=== PATIENT | female | born 1965 | race Caucasian/White ===

== ENCOUNTER 2016-09-09 09:15 | Day surgery (SDC) | payer OTHER ==
[2016-09-09] MEDS ORDERED: LACTATED RINGERS 1,000 ML IV ONE ×2 (09:41→10:56)
[2016-09-09 09:46] LABS: HCT - HEMATOCRIT 42.9 % (37.0-47.0); HGB - HEMOGLOBIN 14.5 g/dL (12.0-16.0); MEAN CORPUSCULAR HGB CONC 33.9 g/dL (32.0-36.0); MEAN CORPUSCULAR VOLUME 88.6 fL (81.0-99.0); MEAN PLATELET VOLUME 8.6 fL (7.9-10.8); RED BLOOD COUNT 4.85 10^6/uL (4.20-5.40); RED CELL DISTRIBUTION WIDTH 13.9 % (12.0-15.0); WHITE BLOOD COUNT 11.5 x10^3/uL (4.8-10.8)
[2016-09-09] MEDS ORDERED: fentaNYL 100 MCG/2 ML VIAL IVP ONE (10:06)
[2016-09-09] MEDS ORDERED: MIDAZOLAM 2 MG/2 ML VIAL IVP ONE (10:06)
--- NOTE | 2016-09-09 11:07 | POST OP PROGRESS NOTE ---
Subjective - General Procedure Date: 09/09/16 (outpt procedure) Post Op Days: 0 Procedure Performed: colonoscopy with polypectomy Surgery Impression Plan - FEN FEN: Preop dx: h/o colitis, suspected diverticulitis Postop dx: diverticulosis; colon polyp, hemorrhoids Procedure: colonoscopy with polypectomy (biopsy forceps) Surgeon: Jennie Dykes MD Anesthesia: conscious sedation Procedure: After informed consent was obtained, the pt was taken to the endo suite and placed in the lateral decubitus position. A time-out was done and IV sedation was given. A rectal exam was done which demonstrated external and internal hemorrhoids. The colonoscope was inserted and guided under direct visualization. At 33cm a small polyp was noted and was removed in a piecemeal fashion with the biopsy forceps removing the entire polyp. Within the sigmoid and left colon the pt had significant diverticulosis, but no inflammatory changes. The scope was advanced to the cecum which was identified by landmarks. It was withdrawn slowly while carefully examining the colon wall. No other polyps or abnormalities were noted. The scope was retroflexed in the anal canal and the moderate previously noted hemorrhoids were seen without any bleeding or stigmata of bleeding. The scope was removed. The pt tolerated the procedure well and was sent to the recovery area in stable condition with no immediate postop complications.
[2016-09-09 12:01] VITALS: BP 135/78
== END 2016-09-09 09:16 | disposition home or self-care (01) ==
LOC: SDS 09:15
PROVIDERS: ATTEND Surgery
PROC: 0DBE8ZX Excision of Large Intestine, Via Natural or Artificial Opening Endoscopic, Diagnostic (ICD-10-PCS; principal; 2016-09-09 10:30)
DX: R10.32 Left lower quadrant pain (principal); R14.0 Abdominal distension (gaseous); K64.8 Other hemorrhoids; K57.30 Diverticulosis of large intestine without perforation or abscess without bleeding; K63.5 Polyp of colon; K64.4 Residual hemorrhoidal skin tags; Z90.710 Acquired absence of both cervix and uterus; Z90.49 Acquired absence of other specified parts of digestive tract; Z87.891 Personal history of nicotine dependence; Z88.0 Allergy status to penicillin
CPT/HCPCS: 45380; 85027; J7120; 88305

== ENCOUNTER 2021-04-30 08:40 | Outpatient (CLI) | payer OTHER ==
--- NOTE | 2021-05-07 07:06 | Mammography Report ---
BILATERAL DIGITAL SCREENING MAMMOGRAM 3D/2D WITH EXAGGERATED CC: 04/30/2021 CLINICAL: Routine screening. Family history of breast cancer. No prior exams were available for comparison. There are scattered fibroglandular elements in both br easts. No significant masses, calcifications, or other findings are seen in either breast. IMPRESSION: NEGATIVE There is no mammographic evidence of malignancy. A 1 year screening mammogram is recommended. This exam was interpreted at Station ID: [id number]. NOTE: For mammograms, a report in lay terms will be sent to the patient. Approximately 15% of breast malignancies will not be visualized mammographically. In the management of a palpable breast mass, a negative mammogram must not discourage biopsy of a clinically suspicious lesion. Electronically Signed By: Wil Maldonado acr/penrad:05/06/2021 10:47:08 ACR BI-RADS Category 1: Negative 3341F PARENCHYMAL PATTERN: (A) - The breast(s) demonstrate(s) scattered fibroglandular densities. BI-RADS CATEGORY: (1) - 1 RECOMMENDATION: (ANNUAL) - Recommend routine annual screening mammography. [id number] 1 year screening LATERALITY: (B)
== END 2021-04-30 08:41 | disposition home or self-care (01) ==
LOC: DI.S 08:40
DX: Z12.31 Encounter for screening mammogram for malignant neoplasm of breast (principal); Z80.3 Family history of malignant neoplasm of breast